=== PATIENT | male | born 1970 | race Caucasian/White ===

== ENCOUNTER 2019-09-02 09:25 | Emergency (ER) | payer OTHER ==
[~2019-09-02] VITALS: Ht 165.1 cm; Wt 102.1 kg
== END 2019-09-02 12:17 | disposition home or self-care (01) ==
LOC: ED 09:25
DX: S00.83XA Contusion of other part of head, initial encounter (principal); S60.812A Abrasion of left wrist, initial encounter; S59.912A Unspecified injury of left forearm, initial encounter; W22.8XXA Striking against or struck by other objects, initial encounter; Y93.89 Activity, other specified; Y92.89 Other specified places as the place of occurrence of the external cause; Y99.8 Other external cause status

== ENCOUNTER → 2020-09-15 | Outpatient (CLI) | payer OTHER | END | disposition home or self-care (01) | LOC: COVID19 09:03 | PROVIDERS: ATTEND Internal Medicine | DX: Z20.822 Contact with and (suspected) exposure to COVID-19 (principal) ==

== ENCOUNTER 2020-10-13 06:05 | Emergency (ER) | payer OTHER ==
[~2020-10-13] VITALS: Ht 170.1 cm; Wt 113.4 kg
== END 2020-10-13 06:50 | disposition home or self-care (01) ==
LOC: ED 06:05
DX: S05.02XA Injury of conjunctiva and corneal abrasion without foreign body, left eye, initial encounter (principal); S05.01XA Injury of conjunctiva and corneal abrasion without foreign body, right eye, initial encounter; X58.XXXA Exposure to other specified factors, initial encounter; Y93.89 Activity, other specified; Y92.89 Other specified places as the place of occurrence of the external cause; Y99.8 Other external cause status

== ENCOUNTER 2022-04-24 09:12 | Emergency (ER) | payer OTHER ==
[~2022-04-24] VITALS: Wt 120.2 kg
[2022-04-24] MEDS ORDERED: VALSARTAN160 MG PO (11:45)
[2022-04-24 11:53] LABS: BASO % 0.3 % (0.0-1.0); EOS % 1.3 % (1.0-4.0); HEMATOCRIT 40.6 % (42.0-52.0); LYMPH # 0.7 10*3/uL (1.3-4.4); LYMPH % 21.9 % (27.0-41.0); MEAN CELL VOLUME 94.2 fl (80.0-94.0); MEAN CORPUSCULAR HGB 31.3 pg (27.0-31.0); MEAN CORPUSCULAR HGB CONC 33.3 g/dl (33.0-37.0); MEAN PLATELET VOLUME 9.7 fl (9.6-12.3); MONO # 0.4 10*3/uL (0.1-1.0); MONO % 13.5 % (3.0-9.0); PLATELET COUNT AUTOMATED 196 10*3/uL (130-400); RED BLOOD COUNT 4.31 10*6/uL (4.50-5.90); RED CELL DISTRI WIDTH 12.6 % (0-14.5); WHITE BLOOD COUNT 3.1 10*3/uL (4.8-10.8)
[2022-04-24 12:12] LABS: BUN 17 mg/dl (7-24); CHLORIDE 107 mmol/L (98-107); CREATININE 0.82 mg/dL (0.70-1.30); POTASSIUM 3.8 mmol/L (3.5-5.1); SODIUM 138 mmol/L (136-145)
== END 2022-04-24 13:34 | disposition home or self-care (01) ==
LOC: ED 09:12
PROVIDERS: Internal Medicine
DX: U07.1 COVID-19 (principal); Z79.899 Other long term (current) drug therapy

== ENCOUNTER 2023-08-02 15:34 | Emergency (ER) | payer OTHER ==
[~2023-08-02] VITALS: Ht 167.6 cm; Wt 120.2 kg
[~2023-08-02 15:34] MED LIST: VALSARTAN160 MG PO
== END 2023-08-02 17:58 | disposition home or self-care (01) ==
LOC: ED 15:34
DX: H10.89 Other conjunctivitis (principal)

== ENCOUNTER 2023-11-30 11:46 | Emergency (ER) | payer OTHER ==
[~2023-11-30] VITALS: Ht 165.1 cm; Wt 117.9 kg
[2023-11-30] MEDS ORDERED: Ketorolac Tromethamine 30 MG/ML VIAL IM ONE (12:20)
[2023-11-30] MEDS ORDERED: NAPROSYN500 MG PO (12:22)
== END 2023-11-30 12:31 | disposition home or self-care (01) ==
LOC: ED 11:46
DX: S63.501A Unspecified sprain of right wrist, initial encounter (principal); W19.XXXA Unspecified fall, initial encounter; Y93.89 Activity, other specified; Y92.89 Other specified places as the place of occurrence of the external cause; Y99.8 Other external cause status

== ENCOUNTER 2024-07-17 19:09 | Emergency (ER) | payer OTHER ==
[~2024-07-17] VITALS: Ht 170.1 cm; Wt 100.2 kg
[~2024-07-17 19:09] MED LIST changes: +NAPROSYN500 MG PO
[2024-07-17] MEDS ORDERED: TRAMADOL HCL50 MG PO (20:57)
== END 2024-07-17 21:07 | disposition home or self-care (01) ==
LOC: ED 19:09
DX: M79.641 Pain in right hand (principal); Z79.899 Other long term (current) drug therapy; W22.8XXA Striking against or struck by other objects, initial encounter; Y93.89 Activity, other specified; Y92.89 Other specified places as the place of occurrence of the external cause; Y99.8 Other external cause status

== ENCOUNTER 2024-10-05 18:21 | Emergency (ER) | payer OTHER ==
[~2024-10-05] VITALS: Ht 165.1 cm; Wt 103.4 kg
[~2024-10-05 18:21] MED LIST changes: +TRAMADOL HCL50 MG PO
[2024-10-05 19:18] LABS: HEMATOCRIT 38.9 % (42.0-52.0); MEAN CELL VOLUME 90.9 fl (80.0-94.0); MEAN CORPUSCULAR HGB 31.1 pg (27.0-31.0); MEAN CORPUSCULAR HGB CONC 34.2 g/dl (33.0-37.0); MEAN PLATELET VOLUME 9.7 fl (9.6-12.3); PLATELET COUNT AUTOMATED 258 10*3/uL (130-400); RED BLOOD COUNT 4.28 10*6/uL (4.50-5.90); WHITE BLOOD COUNT 8.1 10*3/uL (4.8-10.8)
[2024-10-05 19:19] LABS: MANUAL DIFF REFLEX YES
[2024-10-05 19:38] LABS: BUN 17 mg/dl (9-23); CHLORIDE 102 mmol/L (98-107); POTASSIUM 3.7 mmol/L (3.4-5.1)
[2024-10-05 19:40] LABS: ATYPICAL LYMPHS 1 % (0-0); PLATELET SUFFICIENCY NORMAL (NORMAL); TOTAL CELLS COUNTED 100 #CELLS
[2024-10-05 19:41] LABS: OVALOCYTES FEW
[2024-10-05] MEDS ORDERED: PREDNISONE20 M1 PO (20:20)
[2024-10-05] MEDS ORDERED: AVPAK AZITHROM250 M1 PO (20:20)
[2024-10-05] MEDS ORDERED: methylPREDNISolone sod succ 125 MG VIAL IM ONE (20:25)
[2024-10-05] MEDS ORDERED: AZITHROMYCIN 250 MG TAB PO ONE (20:25)
== END 2024-10-05 20:25 | disposition home or self-care (01) ==
LOC: ED 18:21
PROVIDERS: Nurse Practitioner Family
DX: J40 Bronchitis, not specified as acute or chronic (principal); Z20.822 Contact with and (suspected) exposure to COVID-19; Z79.899 Other long term (current) drug therapy